=== PATIENT | male | born 1995 | race Caucasian/White ===

== ENCOUNTER 2023-01-28 21:40 | Emergency (ER) | payer SELFPAY ==
[2023-01-28 21:41] VITALS: BP 136/97; PULSE 109; RESP 16; TEMP 36.4; O2SAT 99; BMI 34.4
--- NOTE | 2023-01-28 23:22 | EDS_ITS ---
HPI HPI - Psych History of Present Illness Chief Complaint: Depression Narrative Narrative: 27-year-old male presenting with depression. He states has been a long-term thing. He states that he is having difficulty finding work and he has family issues but he feels as if he is coping pretty well with that. His family wanted him to get checked out because he has been going through a lot although again he feels like he is coping pretty well. He has several jobs lined up this week to try to gain money. He seems to be in good spirits. He states that I came willingly just to talk to somebody. He does not have a plan for suicide and does not want a hernia but else. PFSH PFS Medical History Anxiety Depression Home Medications NK 01/28/23 [History Last Taken Unknown] Allergy/AdvReac Type Severity Reaction Status Date / Time ceftriaxone [From Rocephin] Allergy Hives Verified 01/28/23 21:41 Social History Smoking Status: Current some day smoker tobacco type: cigarettes and e- cigarettes ROS ROS ED Constitutional Constitutional ED: Denies chills, fever(s) or sweats Eyes Eyes: Denies blurry vision or change in vision ENT ENT ED: Denies ear pain or sore throat Cardiovascular Cardiovascular: Denies chest pain, palpitations or racing heartbeat Respiratory/Chest Respiratory/Chest: Denies cough, dyspnea or sputum Gastrointestinal Gastrointestinal: Denies abdominal pain, constipation, diarrhea, nausea or vomiting Genitourinary Genitourinary ED: Denies dysuria, hematuria or urinary frequency Musculoskeletal Musculoskeletal: Denies arthralgias, myalgias or neck pain Integumentary Denies abscess, Abrasions or rash Neurologic Neurologic: Denies headache(s), paresthesias or weakness Psychiatric Psychiatric: Reports depression; Denies anxiety, suicidal ideation or suicidal thoughts Endocrine Endocrinology: Denies polydipsia or polyuria EXAM Physical Exam Const Vital Signs: 01/28/23 21:41 Temperature 97.5 F L Temperature Source Temporal Pulse Rate 109 H Respiratory Rate 16 Blood Pressure 136/97 H Blood Pressure Mean 110 Pulse Ox 99 Positive well nourished General Appearance ED: NAD HEENT Reports moist mucous membranes Eyes PERRL and EOMs intact bilaterally Resp normal respiratory effort Cardio Rate: tachycardic Rhythm: regular rhythm Neuro oriented x3 and CN's II-XII intact bilaterally Psych mental status grossly normal, thought process normal and cooperative Appearance: grossly normal Attitude: calm and engaged Activity / Motor Behavior: appropriate eye contact Speech: normal speech Thought Process: normal thought process Thought Content: normal thought content, No suicidality, No homicidality, No phobia(s), No delusion(s) and No hallucination(s) Attention / Concentration: attention grossly intact and concentration grossly intact Memory / Cognition: memory grossly intact Insight: insight good Judgement: judgement good MDM MDM MDM Narrative Medical decision making narrative: Patient presents wanting to talk to a crisis counselor. He does not have a plan for suicide or to hurt anyone. He states that he is a little depressed but he is in good spirits and he has a few jobs lined up this week to make money. He states he came at the request of his family. I do not believe he needs blood work or admission. I was going to have crisis come see him and talk to him however I am told that they need an alcohol level first. This will be obtained. EtOH negative and is less than 3. Crisis will be consulted. I do not believe the patient needs any blood work or imaging at this time. He is just looking for courses. Patient will be signed out to incoming ED physician for monitoring until crisis can evaluate him. Impression: 1. Depression Lab Data Labs: Laboratory Results - last 24 hr 01/28/23 23:25 Ethyl Alcohol < 3.0 Discharge Plan Triage Chief Complaint: Depression ED Provider: Chris Chou Dx/Rx/DC Orders Prescriptions: No Action NK Primary Care Provider: NOT,DEFINED Referrals: NOT,DEFINED [Primary Care Provider] -
[2023-01-28 23:54] LABS: Alcohol, Blood (Medical)-Serum < 3.0 mg/dL
--- NOTE | 2023-01-29 00:01 | NURSING ---
CRISIS CALLED AT 0001
--- NOTE | 2023-01-29 00:27 | ED.RN ---
attempted to give pt. an update that crisis has been contacted and is on their way. I was notified by the patient that I just want to go home already. pt. informed that crisis should be here within the hour, but pt. requested to be d/c anyway. I was told by the patient my girlfriend has a counselor set up at her work for me tomorrow. Informed of potential benefits of meeting with crisis and doctor notified of patients request for discharge.
== END 2023-01-29 00:36 | disposition home or self-care (01) ==
PROVIDERS: Emergency Provider Student in an Organized Health Care Education/Training Program; Visit Provider Student in an Organized Health Care Education/Training Program
DX: F32.A Depression, unspecified (principal); F17.210 Nicotine dependence, cigarettes, uncomplicated; F17.290 Nicotine dependence, other tobacco product, uncomplicated
CPT/HCPCS: 82077; 99282